=== PATIENT | male | born 1960 | race Caucasian/White ===

== ENCOUNTER 2020-11-20 13:27 | Outpatient (CLI) | payer SELFPAY | END 2020-11-20 13:28 | disposition home or self-care (01) | LOC: LABBT 13:27 | PROVIDERS: ATTEND Orthopaedic Surgery | DX: Z01.818 Encounter for other preprocedural examination (principal); M16.11 Unilateral primary osteoarthritis, right hip | CPT/HCPCS: 80048; 81001; 85025; 85610; 87081; 93005; 93010 ==